=== PATIENT | male | born 1970 | race Asian ===

== ENCOUNTER 2017-02-13 21:27 | Emergency (ER) | payer OTHER ==
[~2017-02-13] VITALS: Ht 172.7 cm; Wt 95.0 kg
[2017-02-13] MEDS ORDERED: AMLO10TA55 PO (21:54)
[2017-02-13] MEDS ORDERED: BACL10TA PO (21:54)
[2017-02-13 22:12] VITALS: BP 148/99
== END 2017-02-13 22:58 | disposition home or self-care (01) ==
LOC: EMS 21:30
DX: M25.511 Pain in right shoulder (principal); M54.2 Cervicalgia; I10 Essential (primary) hypertension
CPT/HCPCS: 99282